=== PATIENT | male | born 1950 | race Caucasian/White ===

== ENCOUNTER 2023-10-15 11:40 | Emergency (ER) | payer MEDICARE, OTHER, SELFPAY ==
[2023-10-15 11:44] VITALS: BP 134/67
[2023-10-15 11:56] VITALS: BMI 28.3
--- NOTE | 2023-10-15 12:07 | ED.GENMED ---
History of Present Illness
General
Chief Complaint: Dizziness
Time Seen by Provider: 10/15/23 11:51
Travel History
Have you had any contact with someone who has COVID-19?: No
Do you have any symptoms of coronavirus? Fever > 100 degrees, chills, cough, shortness of breath, sore throat, loss of taste or smell, muscle aches, or headache?: No
History of Present Illness
History of Present Illness:
See MDM
Past History
Past History
ED Past Medical History: Arrthythmia (Atrial fib), CAD, CVA (Denies weakness), HTN, Hypercholesterolemia, NIDDM, Psychiatric (Anxiety) and Other (Diabetic neuropathy, Sleep apnea use Bipap, PNA, Colitis, Ulcers)
ED Past Surgical History: Cardiac (Linq recorderm Ablation), Orthopedic (Spinal surgery) and Tonsilectomy
Social History
Tobacco: Former smoker
Alcohol: Occasional
Drug: None
Personal:
Living: with family
Phy Exam
Physical Exam
Physical Exam:
See MDM
Course
Orders/Labs/Results
Orders:
Orders
10/15/23 11:41
Electrocardiogram (*1) Urgent
Reason for Study: Chest Pain
EKG- Treatment ONCE
10/15/23 12:05
CT Head W/o Iv Contrast Urgent
Comment:
Reason For Exam: Dizzy, headache
0.9% Sodium Chloride 1000 ml [Nss] 1,000 ml IV BOLUS
10/15/23 12:09
CR Chest - 2 Views Urgent
Comment:
Reason For Exam: SOB
10/15/23 12:14
Complete Blood Count/With Diff Urgent
Comprehensive Metabolic Panel Urgent
Troponin I Urgent
10/15/23 13:45
Troponin I Urgent
10/15/23 13:54
Propofol [Diprivan] 20 ml .ROUTE .STK-MED
10/15/23 14:02
EKG [Electrocardiogram (*1)] Urgent
Reason for Study: Other
Other Reason for Exam: converted
EKG- Treatment ONCE
Abnormal Lab Results
10/15/23
12:14
MPV 11.0 H fL
(7.4-10.4)
Lymphocytes % 17.8 L %
(20.5-51.1)
Glucose 129 H mg/dl
(70-99)
10/15/23 12:14
10/15/23 12:14
Vital Signs
Initial and Last Documented VS:
Initial Vital Signs
Temp Pulse Resp BP Pulse Ox
97.9 F 68 16 134/67 98
10/15/23 11:44 10/15/23 11:44 10/15/23 11:44 10/15/23 11:44 10/15/23 11:44
Last Documented Vital Signs
Temp Pulse Resp BP Pulse Ox
97.9 F 88 20 125/69 98
10/15/23 11:44 10/15/23 14:00 10/15/23 14:00 10/15/23 14:00 10/15/23 11:44
MDM/Problems Addressed
Differential Diagnosis Includes:
HPI and MDM Narrative:
73-year-old male presenting with resolving dizziness. Patient noted sudden onset of dizziness when he went down to pick his glasses up. When he stood up, the room spinning. Patient now complaining of mild shortness of breath similar to her prior
episode of pneumonia. Patient is compliant with Eliquis for A-fib. I discussed the patient is currently in A-fib. He has had ablations and cardioversion in the past. I questioned his hydration given his dry mucous membranes. Will give IV fluids
and obtain basic blood work. Patient was concerned about stroke versus heart attack. He denies chest pain. Patient has no cerebellar sign
Physical exam
General: Well appearing and non-toxic
HEENT: protecting airway. Dry mucous membranes
Neck: appears supple
CV: No evidence of cyanosis. Irregular rhythm, regular rate
Resp: No accessory muscle use. Lungs clear
Abd: Non-distended
Extremities: No deformities
Neuro: alert. Normal finger-nose
Psych: Normal affect
Skin: Intact
Problems Addressed including Acute and Chronic Conditions affecting care:
1. A-fib
Acuity: Chronic
Prognosis: stable
Details: Currently rate controlled.
2. Dizziness
Acuity: acute
Prognosis: stable
Details: Likely in setting of A-fib versus dehydration. Given his blood thinner, will obtain CT head
3. Shortness of breath
Acuity: acute
Prognosis: stable
Details: Likely in the setting of A-fib. Will obtain chest x-ray
Updates
CT negative for acute pathology. Chest x-ray clear. On reevaluation after IV fluids, patient in normal sinus rhythm and feels better.
Differential Diagnosis (but not limited to): TIA, vertigo, pneumonia, A-fib
Testing considered: CT angio head and neck
Drug therapy (if applicable): OTC meds, please see d/c instruction regarding Rx drugs
Amount and/or Complexity of Data Reviewed
Clinical info obtained from: Patient
External data reviewed: N/A
Labs I independently reviewed (but not limited to): Troponin normal
Radiology: The CT scan was personally and independently reviewed. In addition, official CT report reviewed.
X-ray independently reviewed: Chest x-ray clear
Pulse Ox: not hypoxic
EKG independently reviewed: A flutter, normal axis, no STEMI
Vat Washer: N/A
Critical Care: N/A
Risk of Complication:
Social Determinants of health: Good social support
Discussed with other providers: N/A
Escalation of Care includes Admit/Obs: After being observed in the Emergency Department, pt stable for discharge.
Occasional wrong word or 'sound a like' substitutions may have occurred due to the inherent limitations of voice recognition software. Read the chart carefully and recognize, using context, where substitutions have occurred.
*Critical Care Note
Total Time (30-74mins, 75-104mins- exclusive of procedures): Not Applicable
ED Attending Note
-
Portions of this chart may have been created with voice recognition software.� Occasional wrong word or��sound alike� substitutions may have occurred due to the inherent limitations of voice recognition software.
Discharge Plan
Departure
Patient Disposition: Home (Routine Discharge)
Date of Disposition: 10/15/23
Time of Disposition: 14:46
Patient with high blood pressure during this ER visit?: No
Discharge Problem:
Paroxysmal atrial fibrillation
Instructions: Atrial Fibrillation (DC)
Prescriptions:
No Action
losartan 50 MG tablet
50 mg PO DAILY
rosuvastatin 20 MG tablet
20 mg PO DAILY
duloxetine 60 MG capsule,delayed release(DR/EC)
60 mg PO DAILY
fenofibrate 54 MG tablet
54 mg PO DAILY
omega 8-enu-gek-fish oil [Fish Oil] 1,000 MG capsule
3,000 mg PO DAILY
Insulin Pump [Patient's Own Insulin Pump:] 1 UNITS Pump.Resvr
0 units SC
Patient Comments:
08/23/19: patient uses humalog insulin. does not know his basal rate. counts carbs for bolus'.
diltiazem HCl 180 MG capsule,extended release 24hr
360 mg PO DAILY Qty: 60 11RF
Rx Instructions:
Take Cardizem CD 360 mg (two 180 mg tablets) once a day
Eliquis 5 MG tablet
5 mg PO BID Qty: 0 0RF
Rx Instructions:
Please resume tonight, 06/25 at usual time
azithromycin 250 mg Tablet
250 mg PO DAILY
ketorolac 0.4 % Drops
1 drp OPHTHALMIC (EYE) QID
Rx Instructions:
L eye
moxifloxacin 0.5 % Drops
1 drp OPHTHALMIC (EYE) TID
Rx Instructions:
L eye
prednisolone acetate 1 % Drops,Suspension
1 drp OPHTHALMIC (EYE) QID
Rx Instructions:
L eye
prednisolone acetate 1 % Drops,Suspension
2 drp OPHTHALMIC (EYE) BID
Rx Instructions:
R eye
cefdinir 300 mg capsule
300 mg PO BID 7 Days Qty: 14 0RF
Referrals:
Buddy Novak DO [Family Provider] -
Activity Restrictions/Additional Instructions:
Please return for any worsening symptoms.
You may return at any time if you have further concerns.
Please follow up with your doctor at the first available appointment, preferably this week.
Thank you for choosing [facility].
Interventions
Interventions:
*Risk Screen - Suicide Last Done: 10/15/23 11:56
*General Assessment Last Done: 10/15/23 11:44
*Neglect/Abuse Screening Last Done: 10/15/23 11:56
ED- Fall Risk Assessment Last Done: 10/15/23 11:56
*ED COVID-19 Vaccine History Last Done: 10/15/23 11:44
ED- Neurological Assessment Last Done: 10/15/23 11:56
ED- Cardiac Assessment Last Done: 10/15/23 11:56
ED Swallowing Screen Last Done: 10/15/23 11:56
[2023-10-15] MEDS: NSS 1000 IV (12:15)
[2023-10-15 12:37] LABS: % Basophils 0.4 % (0-2); % Eosinophils 1.2 % (0-6); % Immature Granulocytes 0.4 % (0-0.5); % Lymphocytes 17.8 % (20.5-51.1); % Monocytes 6.3 % (1.7-9.3); % Neutrophils 73.9 % (42.2-75.2); Absolute Eosinophils 0.1 10^3/uL (0-0.7); Absolute Lymphocytes 1.3 10^3/uL (1.2-3.4); Absolute Monocytes 0.5 10^3/uL (0.1-0.6); Absolute Neutrophils 5.4 10^3/uL (1.4-6.5); Hematocrit 44.1 % (39.0-52.0); Hemoglobin 15.7 g/dL (13.0-18.0); Mean Corp Hgb Conc. 35.6 g/dL (33.0-37.0); Mean Corpuscular Hgb 30.6 pg (27.0-31.0); Nucleated Red Blood Cells % 0 % (-); Platelet Count 259 10^3/uL (130-400); Red Blood Cell Count 5.13 10^6/uL (4.70-6.10); Red Cell Dist. Width 12.3 % (11.5-14.5); White Blood Cell Count 7.3 10^3/uL (4.8-10.8)
[2023-10-15 12:49] LABS: ALT (SGPT) 30 U/L (0-50); AST (SGOT) 43 U/L (17-59); Albumin 4.7 g/dl (3.5-5.0); Alkaline Phosphatase 123 U/L (38-126); Blood Urea Nitrogen 17 mg/dl (9-20); Calcium 9.7 mg/dl (8.4-10.2); Carbon Dioxide 27 mmol/L (22-30); Chloride 104 mmol/L (98-107); Estimated Creatinine Clearance 57 ml/min; Glucose 129 mg/dl (70-99); Potassium 4.4 mmol/L (3.5-5.1); Sodium 138 mmol/L (135-145); Total Bilirubin 0.7 mg/dl (0.2-1.3); Total Protein 7.4 g/dl (6.3-8.2); eGFR 58.73
[2023-10-15 13:00] LABS: Troponin I 0.021 ng/ml
[2023-10-15 13:03] VITALS: BP 132/75
[2023-10-15 14:00] VITALS: BP 125/69
[2023-10-15 15:00] VITALS: BP 136/73
== END 2023-10-15 15:14 | disposition home or self-care (01) ==
LOC: EMR 11:40
PROVIDERS: EMERGENCY PHYSICIAN Student in an Organized Health Care Education/Training Program; FAMILY PHYSICIAN Family Medicine
DX: I48.0 Paroxysmal atrial fibrillation (principal); R42 Dizziness and giddiness; R06.02 Shortness of breath; I25.10 Atherosclerotic heart disease of native coronary artery without angina pectoris; I10 Essential (primary) hypertension; E78.00 Pure hypercholesterolemia, unspecified; E11.40 Type 2 diabetes mellitus with diabetic neuropathy, unspecified; F41.9 Anxiety disorder, unspecified; G47.30 Sleep apnea, unspecified; K52.9 Noninfective gastroenteritis and colitis, unspecified; Z79.01 Long term (current) use of anticoagulants; Z87.01 Personal history of pneumonia (recurrent); Z86.73 Personal history of transient ischemic attack (TIA), and cerebral infarction without residual deficits; Z87.891 Personal history of nicotine dependence; Z88.1 Allergy status to other antibiotic agents
CPT/HCPCS: 99285; 96360; 70450; 71046; 80053; 84484; 85025; 93005

== ENCOUNTER 2024-10-23 17:42 | Emergency (ER) | payer MEDICARE, OTHER, SELFPAY ==
[2024-10-23 17:48] VITALS: BP 159/73
[2024-10-23 18:01] LABS: Glucose - Point of Care 518 mg/dl (70-99)
[2024-10-23 18:07] LABS: % Basophils 0.3 % (0-2); % Eosinophils 0.2 % (0-6); % Immature Granulocytes 0.3 % (0-0.5); % Monocytes 5.4 % (1.7-9.3); % Neutrophils 80.8 % (42.2-75.2); Absolute Lymphocytes 1.1 10^3/uL (1.2-3.4); Absolute Monocytes 0.5 10^3/uL (0.1-0.6); Hematocrit 39.5 % (39.0-52.0); Hemoglobin 14.1 g/dL (13.0-18.0); Mean Corp Hgb Conc. 35.7 g/dL (33.0-37.0); Mean Corpuscular Hgb 30.7 pg (27.0-31.0); Mean Corpuscular Volume 85.9 fL (80.0-94.0); Mean Platelet Volume 10.9 fL (7.4-10.4); Nucleated Red Blood Cells % 0 % (-); Platelet Count 224 10^3/uL (130-400); Red Cell Dist. Width 12.3 % (11.5-14.5); Venous Blood Gas B.E. -2.2 mmol/L (-4 to +4); Venous Blood Gas HCO3 23.2 mmol/L (22-27); Venous Blood Gas O2 Sat % 84.8 %; Venous Blood Gas pCO2 41 mmHg (35-48); Venous Blood Gas pH 7.36 (7.32-7.43); Venous Blood Gas pO2 49 mmHg (30-50); White Blood Cell Count 8.7 10^3/uL (4.8-10.8)
[2024-10-23 18:30] LABS: ALT (SGPT) 31 U/L (0-50); AST (SGOT) 35 U/L (17-59); Albumin 4.3 g/dl (3.5-5.0); Alkaline Phosphatase 117 U/L (38-126); Blood Urea Nitrogen 38 mg/dl (9-20); Calcium 9.3 mg/dl (8.4-10.2); Carbon Dioxide 24 mmol/L (22-30); Chloride 95 mmol/L (98-107); Glucose 530 mg/dl (70-99); Potassium 4.6 mmol/L (3.5-5.1); Sodium 129 mmol/L (135-145); Total Bilirubin 1.5 mg/dl (0.2-1.3); Total Protein 6.6 g/dl (6.3-8.2); eGFR > 60.00
[2024-10-23 18:32] LABS: B-Hydroxybutyrate 1.52 mmol/L (0.02-0.27)
[2024-10-23 18:35] VITALS: BP 137/58
[2024-10-23 18:36] VITALS: BMI 29.6
[2024-10-23] MEDS: NSS 1000 IV (18:50)
[2024-10-23 19:00] VITALS: BP 143/65
[2024-10-23 19:02] LABS: Glucose - Point of Care 462 mg/dl (70-99)
[2024-10-23] MEDS: NOVOLOG vial 10 UNITS SC (19:10)
--- NOTE | 2024-10-23 19:19 | ED.GENMED ---
History of Present Illness
General
Chief Complaint: Blood Sugar Problem
Source: patient
Exam Limitations: none
Time Seen by Provider: 10/23/24 18:38
Nursing documentation reviewed up to this point in time: agreed with
History of Present Illness
History of Present Illness:
74-year-old male with a past medical history of hypertension, hyperlipidemia, CAD, atrial fibrillation, DARRELL, insulin-dependent diabetes who presents to the emergency department for evaluation of hyperglycemia. Patient reports that he recently got a
new insulin pump about a week ago due to malfunction with his old pump. He says that despite no change in his normal insulin dosing (2.9 units/h according to the pump) he noted severe hyperglycemia today with a blood glucose of over 500. He says
he has felt weak and tired but denies any other specific complaints including vomiting, abdominal pain, headache, chest pain. He does note that he is just getting over a minor cold but otherwise feeling well the past few days. He does note that
prior to come to the hospital today he gave himself a total of 22 units of subcutaneous insulin manually due to his high sugars�10 units early afternoon and then 12 more units at around 5 PM.
Past History
Past History
ED Past Medical History: Arrthythmia (Atrial fib), CAD, CVA (Denies weakness), HTN, Hypercholesterolemia, NIDDM, Psychiatric (Anxiety) and Other (Diabetic neuropathy, Sleep apnea use Bipap, PNA, Colitis, Ulcers)
ED Past Surgical History: Cardiac (Linq recorderm Ablation), Orthopedic (Spinal surgery) and Tonsilectomy
Social History
Tobacco: Former smoker
Alcohol: Occasional
Drug: None
Personal:
Living: with family
Review of Systems
Review of Systems
All Other Systems: ROS reviewed and negative except as documented in HPI and ROS
Constitutional: Reports fatigue; Denies fever
Respiratory: Denies cough or trouble breathing
Cardiac: Denies chest pain
ABD/GI: Denies abdominal pain, nausea or vomiting
: Denies flank pain
Musculoskeletal: Denies neck pain or back pain
Neurological: Denies dizzy or headache
Phy Exam
Physical Exam
Physical Exam:
General: Awake, alert, oriented x3; no acute distress
Head: Normocephalic, atraumatic
Eyes: Conjunctiva normal
Throat: Airway intact, somewhat dry mucous membranes
Neck: Trachea midline, supple without meningismus
Lungs: Clear to auscultation bilaterally, no wheezing, rales, rhonchi
Heart: Regular rate and rhythm, no murmurs, gallops, or rubs
Abd: Soft, non distended, nontender
Neuro: No gross deficits
Skin: no rash
Extremities: No edema in extremities, equal pulses in all extremities
Scores
Heart Failure Risk
Heart Failure Risk Score: Not Applicable
Heart Score for Chest Pain Patients
STEMI patient?: Not applicable
Withdrawal Assessment of Alcohol
Withdrawal Assessment Completed?: Not applicable
Course
Orders/Labs/Results
Orders:
Orders
10/23/24 17:54
B-Hydroxybutyrate Urgent
Complete Blood Count/With Diff Urgent
Comprehensive Metabolic Panel Urgent
Venous Blood Gas Urgent
%Oxygen/Room Air: room air
10/23/24 18:39
0.9% Sodium Chloride 1000 ml [Nss] 1,000 ml IV BOLUS
10/23/24 19:00
Bedside Glucose- Treatment Q30M
10/23/24 19:02
Insulin Aspart [NOVOLOG vial] 10 units SC NOW STA
10/23/24 19:05
Glucose Urgent
10/23/24 19:39
Urinalysis Reflex To Culture Urgent
Date Specimen was Collected: 10/23/24
Time Specimen was Collected: 19:34
Urine Microscopic Reflex Cult Urgent
10/23/24 22:07
Insulin Glargine Lantus [Lantus] 50 units Subcutaneous Insulin Syringe [Syringe-Insulin] 0 unit SC ONCE
Abnormal Lab Results
10/23/24 10/23/24 10/23/24
17:54 18:00 19:00
RBC 4.60 L 10^6/uL
(4.70-6.10)
MPV 10.9 H fL
(7.4-10.4)
Absolute Neuts (auto) 7.0 H 10^3/uL
(1.4-6.5)
Absolute Lymphs (auto) 1.1 L 10^3/uL
(1.2-3.4)
Neutrophils % 80.8 H %
(42.2-75.2)
Lymphocytes % 13.0 L %
(20.5-51.1)
Sodium 129 L mmol/L
(135-145)
Chloride 95 L mmol/L
(98-107)
BUN 38 H mg/dl
(9-20)
Glucose 530 H* mg/dl
(70-99)
Total Bilirubin 1.5 H mg/dl
(0.2-1.3)
Urine Ketones
Urine Glucose
Urine Albumin (Reflex)
B-Hydroxybutyrate 1.52 H mmol/L
(0.02-0.27)
POC Glucose 518 H* mg/dl 462 H* mg/dl
(70-99) (70-99)
10/23/24 10/23/24 10/23/24
19:05 19:39 20:21
RBC
MPV
Absolute Neuts (auto)
Absolute Lymphs (auto)
Neutrophils %
Lymphocytes %
Sodium
Chloride
BUN
Glucose 456 H* mg/dl
(70-99)
Total Bilirubin
Urine Ketones 1+ A
(Negative)
Urine Glucose 4+ A
(Negative)
Urine Albumin (Reflex) 2+ A
(Neg - Trace)
B-Hydroxybutyrate
POC Glucose 344 H mg/dl
(70-99)
10/23/24
21:39
RBC
MPV
Absolute Neuts (auto)
Absolute Lymphs (auto)
Neutrophils %
Lymphocytes %
Sodium
Chloride
BUN
Glucose
Total Bilirubin
Urine Ketones
Urine Glucose
Urine Albumin (Reflex)
B-Hydroxybutyrate
POC Glucose 279 H mg/dl
(70-99)
10/23/24 17:54
10/23/24 19:05
Vital Signs
Initial and Last Documented VS:
Initial Vital Signs
Temp Pulse Resp BP Pulse Ox
36.9 C 76 18 159/73 96
10/23/24 17:48 10/23/24 17:48 10/23/24 17:48 10/23/24 17:48 10/23/24 17:48
Last Documented Vital Signs
Temp Pulse Resp BP Pulse Ox
36.9 C 66 20 143/65 95
10/23/24 17:48 10/23/24 19:15 10/23/24 19:15 10/23/24 19:00 10/23/24 19:15
MDM/Problems Addressed
Differential Diagnosis Includes:
Hyperglycemia, DKA
MDM/Problems Addressed:
74-year-old male presents for evaluation of hyperglycemia despite use of his insulin pump�he unfortunately had to switch pumps recently and thinks it may be malfunctioning. Sugars over 500 today. He is fatigued but no other significant symptoms.
Hypertensive otherwise normal vitals. Physical exam as above. Attempted to troubleshoot insulin pump but appears to be working, program to give 2.9 units/h however given his continued high sugars advised to stop insulin pump and will proceed with
treatment with subcutaneous insulin. His triage labs were sent off his CBC was unremarkable, CMP showed glucose of over 500 with pseudohyponatremia but no metabolic acidosis, normal pH�patient does not appear to be in DKA. Will provide IV fluids
and start with 10 additional units of subcutaneous insulin, frequent Accu-Cheks. Reassess. Suspect this is more of a pump malfunction rather than some secondary issue causing refractory hypoglycemia.
After fluids and 10 additional units of subcutaneous insulin his sugar continues to trend downward. Continue to monitor. Now in the 300s.
Sugar continues to be downtrending he is now 279 on his most recent check. He feels well vitals have been stable. He has a good monitor at home I think he is in a reasonable range to discharge�will start on subcu insulin for now and have him see
his endocrine this week to troubleshoot his insulin pump. Discussed with endocrinology regarding reasonable subcutaneous insulin regimen to start for the time being�will give him Lantus prior to discharge and start on Lantus 50 units nightly and
Humalog per normal bolus ratios with meals. Patient is very comfortable with this. All questions answered.
Chronic conditions affecting care:
Insulin-dependent diabetes
*Pulse Oximetry
Patient hypoxic: no
*Critical Care Note
Total Time (30-74mins, 75-104mins- exclusive of procedures): Not Applicable
Data Reviewed
Source: patient and spouse
ED Attending Note
-
Portions of this chart may have been created with voice recognition software.� Occasional wrong word or��sound alike� substitutions may have occurred due to the inherent limitations of voice recognition software.
Discharge Plan
Departure
Patient Disposition: Home (Routine Discharge)
Date of Disposition: 10/23/24
Time of Disposition: 22:12
Patient with high blood pressure during this ER visit?: Yes
Discharge Problem:
Hyperglycemia
Instructions: High blood sugar in adults - ED discharge instructions
Prescriptions:
New
insulin glargine [Lantus U-100 Insulin] 100 unit/mL solution
50 unit SC QPM 30 Days Qty: 15 0RF
insulin lispro [Humalog U-100 Insulin] 100 unit/mL solution
1 sliding scale dose SC DIRECTED Qty: 10 0RF
No Action
losartan 50 MG tablet
50 mg PO DAILY
rosuvastatin 20 MG tablet
20 mg PO DAILY
duloxetine 60 MG capsule,delayed release(DR/EC)
60 mg PO DAILY
fenofibrate 54 MG tablet
54 mg PO DAILY
omega 1-jtk-pad-fish oil [Fish Oil] 1,000 MG capsule
3,000 mg PO DAILY
Insulin Pump [Patient's Own Insulin Pump:] 1 UNITS Pump.Resvr
0 units SC
Patient Comments:
08/23/19: patient uses humalog insulin. does not know his basal rate. counts carbs for bolus'.
diltiazem HCl 180 MG capsule,extended release 24hr
360 mg PO DAILY Qty: 60 11RF
Rx Instructions:
Take Cardizem CD 360 mg (two 180 mg tablets) once a day
Eliquis 5 MG tablet
5 mg PO BID Qty: 0 0RF
Rx Instructions:
Please resume tonight, 06/25 at usual time
azithromycin 250 mg Tablet
250 mg PO DAILY
ketorolac 0.4 % Drops
1 drp OPHTHALMIC (EYE) QID
Rx Instructions:
L eye
moxifloxacin 0.5 % Drops
1 drp OPHTHALMIC (EYE) TID
Rx Instructions:
L eye
prednisolone acetate 1 % Drops,Suspension
1 drp OPHTHALMIC (EYE) QID
Rx Instructions:
L eye
prednisolone acetate 1 % Drops,Suspension
2 drp OPHTHALMIC (EYE) BID
Rx Instructions:
R eye
cefdinir 300 mg capsule
300 mg PO BID 7 Days Qty: 14 0RF
Referrals:
Buddy Novak DO [Family Provider] -
Piyush Edmond MD [Non-Admitting Privileges] - Call in 1-3 days for appt (Follow up with week with your metallurgical analyst as we discussed)
Activity Restrictions/Additional Instructions:
You should stop using your insulin pump for the time being until you can see your metallurgical analyst and troubleshoot the pump. You should call first thing tomorrow to see your metallurgical analyst as soon as possible. In the meantime you should watch
your sugars very closely with regular Accu-Cheks; we started you on subcutaneous insulin and you should continue this regimen until you see your metallurgical analyst. You should start using Lantus 50 units at nighttime and you should take your mealtime
insulin (Humalog) according to your typical insulin bolus ratios as we discussed.
Thank you for visiting the Emergency Department at [facility].
1. Please schedule a follow up appointment as directed. Call first thing tomorrow morning to make an appointment.
2. If indicated, please take your medications as instructed and indicated on discharge paperwork.
3. If any of your symptoms do not improve, or persist, or become more severe within 6-12 hours, please return to the emergency department for further care.
4. Please return to the emergency department if you develop a headache, neck pain/stiffness, fever greater than 100.4F, chest pain, shortness of breath, persistent nausea, vomiting, slurred speech, difficulty walking, numbness/tingling, weakness,
signs of infection or any other symptoms that are worrisome to you.
Please call [phone] if you have any questions.
Interventions
Interventions:
*Risk Screen - Suicide Last Done: 10/23/24 17:49
*General Assessment Last Done: 10/23/24 17:49
*Neglect/Abuse Screening Last Done: 10/23/24 17:49
*ED COVID-19 Vaccine History Last Done: 10/23/24 17:49
ED- Neurological Assessment Last Done: 10/23/24 18:36
Discharge Date and Time
Print Language: KISWAHILI
[2024-10-23 19:38] LABS: Glucose 456 mg/dl (70-99)
[2024-10-23 20:00] VITALS: BP 138/69
[2024-10-23 20:00] LABS: Urine Albumin 2+ (Neg - Trace); Urine Bilirubin Negative (Negative); Urine Character Clear (Clear); Urine Color Yellow; Urine Glucose 4+ (Negative); Urine Ketone 1+ (Negative); Urine Leukocyte Negative (Negative); Urine Nitrite Negative (Negative); Urine Occult Blood Negative (Negative); Urine Specific Gravity 1.015 (<1.030); Urine Urobilinogen Negative (Neg - 1+)
[2024-10-23 20:22] LABS: Urine Squamous Cell 0-2 /LPF (Few)
[2024-10-23 20:23] LABS: Urine Red Blood Cell 0-2 /HPF (0-2)
[2024-10-23 20:23] LABS: Glucose - Point of Care 344 mg/dl (70-99)
[2024-10-23 21:00] VITALS: BP 122/107
[2024-10-23 21:34] VITALS: BP 147/68
[2024-10-23 21:40] LABS: Glucose - Point of Care 279 mg/dl (70-99)
[2024-10-23] MEDS: LANTUS 0.5 UNITS SC (22:45)
== END 2024-10-23 22:50 | disposition home or self-care (01) ==
LOC: EMR 17:42
PROVIDERS: Emergency Medicine; EMERGENCY PHYSICIAN Emergency Medicine; FAMILY PHYSICIAN Family Medicine
DX: E11.65 Type 2 diabetes mellitus with hyperglycemia (principal); E78.00 Pure hypercholesterolemia, unspecified; I25.10 Atherosclerotic heart disease of native coronary artery without angina pectoris; I48.91 Unspecified atrial fibrillation; I10 Essential (primary) hypertension; G47.33 Obstructive sleep apnea (adult) (pediatric); E11.40 Type 2 diabetes mellitus with diabetic neuropathy, unspecified; Z96.41 Presence of insulin pump (external) (internal); Z79.4 Long term (current) use of insulin; Z86.73 Personal history of transient ischemic attack (TIA), and cerebral infarction without residual deficits; Z87.891 Personal history of nicotine dependence
CPT/HCPCS: 99283; 96360; 96372; 80053; 81003; 81015; 82010; 82805; 82947; 82962; 85025

== ENCOUNTER 2024-11-15 06:03 | Inpatient (IN) | payer MEDICARE, OTHER, SELFPAY ==
[2024-11-04 09:55] VITALS: BMI 29.6
[2024-11-04 10:33] LABS: PT 13.5 Sec (11.4-14.6)
[2024-11-04 10:39] LABS: % Basophils 0.3 % (0-2); % Eosinophils 1.9 % (0-6); % Immature Granulocytes 0.5 % (0-0.5); % Lymphocytes 17.4 % (20.5-51.1); % Monocytes 6.8 % (1.7-9.3); % Neutrophils 73.1 % (42.2-75.2); Absolute Eosinophils 0.1 10^3/uL (0-0.7); Absolute Lymphocytes 1.1 10^3/uL (1.2-3.4); Absolute Monocytes 0.4 10^3/uL (0.1-0.6); Absolute Neutrophils 4.7 10^3/uL (1.4-6.5); Hematocrit 40.7 % (39.0-52.0); Hemoglobin 13.9 g/dL (13.0-18.0); Mean Corp Hgb Conc. 34.2 g/dL (33.0-37.0); Mean Corpuscular Hgb 30.3 pg (27.0-31.0); Mean Corpuscular Volume 88.9 fL (80.0-94.0); Mean Platelet Volume 11.2 fL (7.4-10.4); Nucleated Red Blood Cells % 0 % (-); Platelet Count 209 10^3/uL (130-400); Red Blood Cell Count 4.58 10^6/uL (4.70-6.10); Red Cell Dist. Width 12.6 % (11.5-14.5); White Blood Cell Count 6.4 10^3/uL (4.8-10.8)
[2024-11-04 10:48] LABS: ALT (SGPT) 34 U/L (0-50); AST (SGOT) 38 U/L (17-59); Albumin 4.2 g/dl (3.5-5.0); Alkaline Phosphatase 93 U/L (38-126); Blood Urea Nitrogen 23 mg/dl (9-20); Calcium 9.3 mg/dl (8.4-10.2); Carbon Dioxide 27 mmol/L (22-30); Chloride 105 mmol/L (98-107); Estimated Creatinine Clearance 79 ml/min; Glucose 165 mg/dl (70-99); Potassium 4.2 mmol/L (3.5-5.1); Sodium 140 mmol/L (135-145); Total Bilirubin 0.6 mg/dl (0.2-1.3); Total Protein 6.5 g/dl (6.3-8.2); eGFR > 60.00
[2024-11-15] VITALS (11 sets, daily range): BP systolic 110–153; BP diastolic 53–70; BMI 29.5
--- NOTE | 2024-11-15 07:08 | PTCARENOTE ---
Per Dr Lott pt placed insulin pump on basal rate mode only at this time
--- NOTE | 2024-11-15 07:15 | W.PN.UPDATE ---
Update Note
Progress Note Update
Reviewed patient with the heart in the SDM meeting and discussed a 27mm Device, will confirm with intraop imaging. He will continue Eliquis 5mg BID x 3 months until f/u AIDA.
[2024-11-15 08:50] LABS: Glucose - Point of Care 71 mg/dl (70-99)
--- NOTE | 2024-11-15 08:51 | ITS.CL.PN ---
It Infrastructure Specialist - Procedure Note
Procedure
Procedure Note:
WATCHMAN LEFT ATRIAL APPENDAGE OCCLUSION REPORT
Date of Procedure: 11/15/2024
Referring: Dr. Phu Peña MD
Indication: atrial fibrillation with high stroke risk and inability to afford NOAC
Operators: Chi Park MD, PhD (interventional cardiology); Dr. Brett Anthony MD (electrophysiology); Dr. Dylan Bartholomew MD (cardiac imaging)
Anesthesia: general anesthesia provided by the anesthesia staff
PROCEDURE: left atrial appendage occlusion with a 27 mm Watchman FLX
ACCESS: 14F right common femoral vein (closure: figure of eight stitch)
ULTRASOUND GUIDED VASCULAR ACCESS (right femoral vein): Ultrasound was utilized for vascular access. The vessel was visualized under ultrasound and noted to be patent. An image of the vessel was stored permanently in the patient's medical record.
Under direct ultrasound guidance, vascular access was obtained using a modified Seldinger technique and a 8 Salvadorean sheath was placed.
HEMODYNAMIC DATA
LA 14 mmHg
PROCEDURE NARRATIVE:
The patient was intubated and sedated by anesthesiology and then prepped and draped in standard sterile fashion. A AIDA probe was placed by cardiology and imaging performed demonstrating no left atrial appendage thrombus and no pericardial effusion.
Under ultrasound guidance, the right femoral vein was accessed with 8F and 9F sheaths placed. Heparin was administered to achieve ACT>300.
An ICE catheter was placed via the 9F sheath and advanced to the right atrium. The 8F sheath was exchanged over a travelmob RF wire for the Watchman double curve sheath which was advanced to the SVC. The Watchman sheath was then pulled back under
fluoroscopic and echo guidance until an appropriate inferior and posterior position on the septum was achieved. During brief RF application, the wire was advanced through the interatrial septum into the left atrium. The wire was placed in the left
upper pulmonary vein as confirmed by fluoroscopy and AIDA. The dilator and sheath easily tracked across the septum allowing placement of the sheath in the left atrium. Left atrial pressure was measured at 14 mmHg.
A 5F pigtail catheter was advanced through the sheath and placed in the left atrial appendage, and an appendage gram was performed demonstrating anatomy suitable for a 27 mm Watchman FLX device. The device was prepped on the back table, the pigtail
catheter removed, and the device delivered via the sheath to the left atrial appendage. The device was deployed slowly under continuous fluoroscopic and AIDA visualization. After deployment, AIDA imaging was performed to assess PASS criteria. The
device demonstrated excellent positioning, anchor stability on tug test, appropriate sizing with 20-25% compression, and appropriate seal with no leak at 0, 45, 90, or 135 degrees. Given PASS criteria were met, the device was then released.
The delivery system retracted back into the sheath and removed from the body. The sheath was retracted into the right atrium with AIDA demonstrating no significant R-L shunt or pericardial effusion. The ICE catheter was removed from the body. The
sheaths were removed and the venotomy closed with [id number] knot. Protamine 4500 units was given. The patient was extubated and tolerated the procedure well.
RADIATION: dose 279.7 mGy; DAP 30.1 Gy*cm2; fluoroscopy time 7.5 min
CONCLUSIONS
1. transseptal puncture with AIDA guidance
2. successful deployment of a 27 mm Watchman FLX device under fluoroscopic and AIDA guidance
RECOMMENDATIONS:
1. anticoagulation with Eliquis 5 mg BID
2. repeat AIDA in 3 months
Copy to: Dr. Phu Peña MD (switch operators supervisor); Dr. Buddy Novak MD (PCP)
Signed: Chi Park MD, PhD
--- NOTE | 2024-11-15 09:07 | ITS.CL.PN ---
Undercar Specialist - Procedure Note
Procedure
Procedure Note:
Watchman implantation report
Date: November 15, 2024
Referring: Dr. Lior Peña
History: 74-year-old male with history of prior TIAs status post pulmonary vein isolation. He has an ILR implant which has not revealed any atrial fibrillation. He cannot be compliant with long-term oral anticoagulation.
Watchman implant: Anthony
Femoral venous access and transseptal scrap drop operator: Kev
Procedure report:
After informed consent and patient safety timeout the patient was sedated by the anesthesiology service. After general anesthesia Dr. Bartholomew performed AIDA which demonstrated a clear left atrial appendage with a trace pericardial effusion which was
stable postoperatively. 21 to 22 mm ostium with left atrial pressure of 14 and under direct ultrasound guidance Dr Park performed direct right femoral venous access with an 8 [place] short sheath which was upgraded to the watchman sheath. Over
pigtail wire this was brought to the right atrium and under AIDA guidance a mid mid stick with the [place] wire and watchman sheath was performed accessing the left atrium and the pigtail catheter was brought into the left supra pulmonary vein. The
sheath was brought to the left atrial appendage with heparin given to greater than 350 seconds. Over the pigtail a dye injection demonstrated a cauliflower appendage with a 22 mm ostium. As such we brought a 27 mm Watchman device to the table.
With wet to wet exchange the Watchman device was brought through the sheath to the left atrial appendage in place intractable fashion. Utilizing the mid distal appendage as a target the 27 device was deployed with 10 seconds of forward pressure.
Aggressive tug testing did not change the position of the device. Device position was ostial. 11 to 19% compression. The device met Pass criteria and all team members agreed for device appointment which was deployed and sheath and catheters
removed to the right atrium. 45 mg protamine was given to reverse the ACT which was greater than 400 seconds. No change in pericardial effusion and a [id number] suture to the right femoral venous access site.
Recommendations:
27 mm device appointment
3 months of oral anticoagulation until 3-month AIDA
[2024-11-15 09:28] LABS: Glucose - Point of Care 90 mg/dl (70-99)
[2024-11-15] MEDS: ANESTHETIC LOZENGE 1 LOZENGE PO (10:31)
--- NOTE | 2024-11-15 11:00 | PTCARENOTE ---
Pt turned insulin pump back on due to his blood sugar registering 145
[2024-11-15 11:30] LABS: Glucose - Point of Care 167 mg/dl (70-99)
[2024-11-15 12:43] LABS: ACT-LR - POC > 397 Seconds (116-155)
--- NOTE | 2024-11-15 13:52 | W.PN.UPDATE ---
Update Note
Progress Note Update
Pt seen post Watchman device implant. Right groin site without ht/bleeding, oob ambulating, urinating without difficulty. Post EKG NSR 60s, no acute changes. Resume eliquis tonight at usual time, continue other meds as before. Post watchman AIDA
scheduled for 02/16 [address] Follow[address] with Dr. Peña as scheduled. Home today if groin site/tele remain stable.
--- NOTE | 2024-11-15 14:37 | W.DS.TRANS ---
DC Summary - Architectural Designer
-
Discharge Instructions:
Discharge Diagnosis/Procedures AFib, s/p watchman device implant
Diet Low Cholesterol,Diabetic, Carb Controlled
Driving Restrictions No driving for 24 hours
Others Tests Follow up AIDA has been scheduled for you at
[facility] on 02/16/[address] Alvarez
. Pre-admission testing is scheduled for
2024 at 11:20am, Ground Floor [facility].
Instructions: Carb counting for adults with diabetes
Left Atrial Appendage Closure (DC)
Atrial fibrillation - Discharge instructions
Heart-healthy diet
Stand-Alone Forms: DC Instructions- Cath/EP Lab
Changes to Home Medications: No
Discharge Medications:
DC Medications w/original date entered in [facility]
losartan 50 mg tablet 50 mg PO DAILY Blood Pressure 02/17/18
rosuvastatin 20 mg tablet 20 mg PO DAILY High Cholesterol 02/17/18
Insulin Pump [Patient's Own Insulin Pump:] 0 units SC DAILY Diabetes 08/23/19
duloxetine 60 mg capsule,delayed release 60 mg PO DAILY Mental Health/Anxiety 08/23/19
fenofibrate 54 mg tablet 54 mg PO DAILY High Cholesterol 08/23/19
omega 2-rbi-nsu-fish oil 1,000 mg (120 mg-180 mg) capsule (Fish Oil) 3,000 mg PO DAILY Supplement 08/23/19
diltiazem HCl 180 mg capsule,extended release 24 hr 360 mg (2 x 180 mg) PO DAILY #60 caps 08/24/19
apixaban 5 mg tablet (Eliquis) 5 mg PO BID #0 tabs 06/25/22
insulin lispro 100 unit/mL subcutaneous solution (Humalog U-100 Insulin) 1 sliding scale dose SC DIRECTED #10 mL 10/23/24
Vitamin C 1 cap PO DAILY 10/28/24
Vitamin D3 1 cap PO DAILY 10/28/24
zinc 1 cap PO DAILY 10/28/24
amlodipine 5 mg tablet 5 mg PO HS 11/15/24
losartan 50 mg tablet 25 mg PO QPM 11/15/24
Home Medication Changes
Pending Results: No
== END 2024-11-15 13:50 | disposition home or self-care (01) | DRG 274 ==
LOC: CATH-IN 06:03
PROVIDERS: Internal Medicine Cardiovascular Disease; ADMITTING PHYSICIAN Internal Medicine Cardiovascular Disease; FAMILY PHYSICIAN Family Medicine
PROC: B24BZZ4 Ultrasonography of Heart with Aorta, Transesophageal (ICD-10-PCS; 2024-11-15)
PROC: 02L73DK Occlusion of Left Atrial Appendage with Intraluminal Device, Percutaneous Approach (ICD-10-PCS; 2024-11-15)
DX: I48.0 Paroxysmal atrial fibrillation (principal); Z00.6 Encounter for examination for normal comparison and control in clinical research program; I31.39 Other pericardial effusion (noninflammatory); I48.92 Unspecified atrial flutter; I10 Essential (primary) hypertension; E78.5 Hyperlipidemia, unspecified; I25.10 Atherosclerotic heart disease of native coronary artery without angina pectoris; G47.33 Obstructive sleep apnea (adult) (pediatric); E11.36 Type 2 diabetes mellitus with diabetic cataract; E11.40 Type 2 diabetes mellitus with diabetic neuropathy, unspecified; E66.9 Obesity, unspecified; Z68.29 Body mass index [BMI] 29.0-29.9, adult; Z79.01 Long term (current) use of anticoagulants; Z79.4 Long term (current) use of insulin; Z87.891 Personal history of nicotine dependence; I25.2 Old myocardial infarction; I69.398 Other sequelae of cerebral infarction; R26.89 Other abnormalities of gait and mobility
CPT/HCPCS: 33340; 36415; 80053; 82962; 85025; 85347; 85610; 86850; 86900; 86901; 87070; 93005; 93355; C1892; C1894; Q9967

== ENCOUNTER → 2025-02-01 11:15 | Outpatient (REF) | payer MEDICARE, OTHER, SELFPAY | LOC: SDSPAT 11:15 | PROVIDERS: ATTENDING PHYSICIAN Internal Medicine Cardiovascular Disease; FAMILY PHYSICIAN Family Medicine; OTHER PHYSICIAN Internal Medicine Interventional Cardiology | DX: I48.0 Paroxysmal atrial fibrillation (principal) | CPT/HCPCS: 93005 ==

== ENCOUNTER 2025-02-16 06:58 | Day surgery (SDC) | payer MEDICARE, OTHER, SELFPAY ==
--- NOTE | 2025-02-01 12:19 | HPS.HSE ---
Family Physician
-
Family Physician: NO INTERVIEW UNKNOWN
Chief Complaint
-
Paroxysmal atrial fibrillation.
History of Present Illness
The patient is a 75 year old male presenting today for paroxysmal atrial fibrillation. The patient underwent a cardioversion and pulmonary vein isolation in 2018 secondary to this diagnosis. His most recent 3 month LINQ summary from
September to December of this year revealed 18 episodes of atrial fibrillation with an overall burden of 5%. He is currently on pharmacological therapy with Diltiazem and oral anticoagulation with Eliquis. His other past medical history is notable for
CVA, with residual balance difficulties and gait disturbance, and multilevel degenerative disc disease with stenosis. He reportedly has had falls in the past secondary to these diagnoses. He did undergo a Watchman implant as advised on November 15, [address] Brett Anthony. He reports no post-operative complications. He is now 3 months post-procedure and will next proceed with a transesophageal echocardiogram to assess the overall stability of his device. He denies complaints today such as
shortness of breath, palpitations, nausea, vomiting, diarrhea, lightheadedness, dizziness, cough, sore throat, or fever. He does report recent intermittent left-sided chest discomfort which often occurs when bending over. It lasts less than 5
minutes and resolves on its own. He denies radiation. Although atypical for angina, a stress test has been ordered per his routine straw hat plunger operator. His most recent echocardiogram on January 13, 2025 was stable.
Medical History
Past Medical History
Past Medical History: Reports Other
Additional Past Medical History:
1. Paroxysmal atrial fibrillation with atrial flutter, status post cardioversion, pulmonary vein isolation in 2018, and Watchman implant 11/2024; pharmacological therapy with Diltiazem and oral anticoagulation with Eliquis.
2. Hypertension.
3. Hyperlipidemia.
4. Coronary artery disease, nonobstructive by catheterization 2018.
5. Atypical chest pain, work-up ongoing.
6. Cardiomyopathy, improved ejection fraction.
7. Mild-moderate valvular disease.
8. Obstructive sleep apnea, CPAP compliant.
9. Type 2 insulin-dependent diabetes with neuropathy.
10. Hiatal hernia.
11. Cholelithiasis, asymptomatic.
12. CVA, right lacunar, with deficits of balance/gait disturbance and cognitive decline.
13. TIA x3.
14. DISH-thoracic.
15. Multilevel degenerative disc disease with stenosis.
16. Osteoarthritis, status post right total shoulder arthroplasty.
17. Anxiety.
18. Remote tobacco abuse.
Past Surgical History: Reports Other
Additional Past Surgical History:
1. Watchman implant.
2. LINQ implant.
3. Pulmonary vein isolation.
4. Cardioversion x1.
5. C5-C6 fusion.
6. Right total shoulder arthroplasty.
7. Nasal septoplasty.
8. Tonsillectomy.
9. Cataract extraction.
10. Colonoscopy.
Social History
Tobacco: Former Smoker (He is a former less than 1 pack per day cigarette smoker who quit tobacco altogether 10+ years ago. )
Alcohol: Occasional
Personal:
Living: Other (He lives in a 2 story home with his . )
Family History
Family History: Not pertinent
Allergies / Home Medications
Allergy/Medication List:
Home medications:
1. Diltiazem 360 mg p.o. daily.
2. Amlodipine 5 mg p.o. at bedtime.
3. Duloxetine 90 mg p.o. daily.
4. Eliquis 5 mg p.o. twice a day.
5. Fenofibrate 54 mg p.o. daily.
6. Humalog sliding scale before meals.
7. Insulin pump.
8. Losartan 75 mg p.o. daily.
9. Crestor 20 mg p.o. daily.
10. [place]-3/fish oil 3000 mg p.o. daily.
Allergies: Tetracyclines.
Review of Systems
-
A 12 point ROS was completed and negative except as noted: Yes
Physical Exam
Vital Signs
Blood pressure 153/73. Heart rate 59. Respirations 18. Pulse ox 99% on room air.
Physical Exam
General: Well Developed, Well Nourished and No Apparent Distress
HEENT: NormoCephalic, Moist mucous membranes, Atraumatic and PERRLA
Respiratory: Clear
Cardiac: Bradycardia
GI: Soft, Non Tender and Non Distended
Musculoskeletal: Other (Trace left lower extremity edema. )
Skin: Warm and Dry
Neuro: AO x 3 and Nonfocal/grossly intact
Laboratory Results
-
EKG 02/01/2025: Sinus bradycardia. Moderate voltage criteria for LVH, may be normal variant.
Echocardiogram 01/13/2025: Normal left ventricular size, borderline increased wall thickness, and normal systolic function. No regional wall motion abnormalities are seen. The ejection fraction is estimated at 65%. Grade 1 diastolic dysfunction.
Normal right ventricular size and function. Mild left atrial enlargement. Normal right atrium. Mild MAC. Structurally normal mitral valve without significant stenosis with mild to moderate regurgitation. Structurally normal aortic valve, mildly
thickened without significant stenosis with mild regurgitation. Structurally normal tricuspid valve without significant stenosis with mild regurgitation. Estimated pulmonary artery pressure is 29 mmHg. Structurally normal pulmonic valve without
significant stenosis w/ physiologic regurgitation. Normal pericardium without effusion. Normal aortic root. IVC was not well-seen.
Impression/Plan
-
IMPRESSION/PLAN:
1. Paroxysmal atrial fibrillation: The patient is 3 months post-Watchman and will now undergo a transesophageal echocardiogram with Dr. Darwin Neff on 02/16/2025. The benefits and risks of the procedure have been explained to the patient. The
patient understands these risks and wishes to proceed. Should his device be well seated and without significant leaks, he will likely be transitioned off Eliquis and onto a daily baby Aspirin indefinitely.
2. Recent left sided chest discomfort: The patient's complaints sound musculoskeletal; however, he was advised to proceed with his stress test as planned. This will likely be scheduled within the next 30 days.
[2025-02-16 07:29] VITALS: BMI 29.7
== END 2025-02-16 09:00 | disposition home or self-care (01) ==
LOC: CATH 06:58
PROVIDERS: ATTENDING PHYSICIAN Internal Medicine Cardiovascular Disease; FAMILY PHYSICIAN Family Medicine; OTHER PHYSICIAN Internal Medicine Cardiovascular Disease; OTHER PHYSICIAN Internal Medicine Interventional Cardiology
DX: I48.0 Paroxysmal atrial fibrillation (principal); E11.40 Type 2 diabetes mellitus with diabetic neuropathy, unspecified; E78.5 Hyperlipidemia, unspecified; F41.9 Anxiety disorder, unspecified; G47.33 Obstructive sleep apnea (adult) (pediatric); I10 Essential (primary) hypertension; I25.10 Atherosclerotic heart disease of native coronary artery without angina pectoris; I42.9 Cardiomyopathy, unspecified; M19.90 Unspecified osteoarthritis, unspecified site; Z79.01 Long term (current) use of anticoagulants; Z79.4 Long term (current) use of insulin; Z79.899 Other long term (current) drug therapy; Z87.891 Personal history of nicotine dependence; Z90.89 Acquired absence of other organs; Z96.611 Presence of right artificial shoulder joint; I48.92 Unspecified atrial flutter; K44.9 Diaphragmatic hernia without obstruction or gangrene; K80.20 Calculus of gallbladder without cholecystitis without obstruction; R07.89 Other chest pain; I69.898 Other sequelae of other cerebrovascular disease; R26.89 Other abnormalities of gait and mobility; E11.9 Type 2 diabetes mellitus without complications; Z96.41 Presence of insulin pump (external) (internal)
CPT/HCPCS: 93312; 93320; 93325

== ENCOUNTER → 2025-03-10 07:20 | Outpatient (REF) | payer MEDICARE, OTHER, SELFPAY | LOC: RCS 07:20 | PROVIDERS: ATTENDING PHYSICIAN Nurse Practitioner; FAMILY PHYSICIAN Family Medicine | DX: R07.9 Chest pain, unspecified (principal) | CPT/HCPCS: 78452; 93017; A9500 ==

== ENCOUNTER → 2025-04-03 11:33 | Outpatient (REF) | payer MEDICARE, OTHER, SELFPAY ==
[2025-04-03 13:01] LABS: Hematocrit 41.0 % (39.0-52.0); Hemoglobin 14.2 g/dL (13.0-18.0); Mean Corp Hgb Conc. 34.6 g/dL (33.0-37.0); Mean Corpuscular Volume 88.0 fL (80.0-94.0); Nucleated Red Blood Cells % 0 % (-); Platelet Count 263 10^3/uL (130-400); Red Cell Dist. Width 12.3 % (11.5-14.5)
[2025-04-03 13:36] LABS: ALT (SGPT) 24 U/L (0-50); AST (SGOT) 32 U/L (17-59); Albumin 4.7 g/dl (3.5-5.0); Alkaline Phosphatase 107 U/L (38-126); Blood Urea Nitrogen 30 mg/dl (9-20); Calcium 9.7 mg/dl (8.4-10.2); Carbon Dioxide 29 mmol/L (22-30); Chloride 105 mmol/L (98-107); Glucose 126 mg/dl (70-99); Potassium 4.6 mmol/L (3.5-5.1); Sodium 140 mmol/L (135-145); Total Protein 7.2 g/dl (6.3-8.2); eGFR > 60.00
== END ==
LOC: SDSPAT 11:33
PROVIDERS: ATTENDING PHYSICIAN Student in an Organized Health Care Education/Training Program; FAMILY PHYSICIAN Family Medicine; REFERRING PHYSICIAN Internal Medicine Interventional Cardiology
DX: R07.9 Chest pain, unspecified (principal)
CPT/HCPCS: 36415; 80053; 85025; 93005

== ENCOUNTER 2025-04-07 12:27 | Day surgery (SDC) | payer MEDICARE, OTHER, SELFPAY ==
[2025-04-03 12:34] VITALS: BMI 29.2
[2025-04-07] VITALS (8 sets, daily range): BP systolic 151–159; BP diastolic 63–85
[2025-04-07 13:05] LABS: Glucose - Point of Care 255 mg/dl (70-99)
--- NOTE | 2025-04-07 14:42 | ITS.CL.PN ---
Printer Helper - Procedure Note
Procedure
Procedure Note:
CARDIAC CATHETERIZATION REPORT
Date of Procedure: 04/07/2025
Referring: Dilma Salazar NP
Indication: NSTEMI, positive cardiac stress test
PROCEDURE(S)
1. left heart catheterization
2. coronary angiography
ACCESS: 6F right femoral artery (closure: Angioseal x1; note: RRA is chronically occluded and a wire would not pass)
CATHETERS
1. 6F JR4
2. 6F JL4
MODERATE SEDATION: 25 minutes of moderate sedation was utilized. An independent medical logistics specialist was present to assist with and help manage the patient's level of consciousness and physiologic status.
HEMODYNAMIC DATA
LV 146/13 (EDP 16 with a-wave to 25) mmHg
AO 156/65 (mean 98) mmHg
CORONARY ANGIOGRAPHY
Dominance: right
LM: large vessel with eccentric calcification in the distal vessel up to 40% (best seen in the cranial projections).
LAD: large vessel giving rise to a several small diagonal branches. There is mild diffuse disease
LCx: large vessel giving rise to a small OM1, moderate caliber OM2, large branching OM3, and two small LPL branches. There is mild haziness at the LCx ostium, likely representing calcific disease extending from the distal LM. There is a focal 80%
stenosis in the proximal aspect of the moderate caliber OM2. There are otherwise mild luminal irregularities only.
RCA: large vessel giving rise to a moderate caliber RPDA and two small RPL branches. There are mild luminal irregularities only.
RADIATION: dose 370 mGy; DAP 24 Gy*cm2; fluoroscopy time 3.4 min
CONCLUSIONS
1. Nonobstructive coronary artery disease in a right dominant system as described
2. Mildly elevated LV filling pressure and no aortic stenosis
RECOMMENDATIONS: aggressive secondary prevention of coronary artery disease
Copy to: Dr. Lior Peña MD and Dr. Dilma Salazar NP (bevel mill operator); Dr. Buddy Novak DO (PCP)
Signed: Chi Park MD, PhD
[2025-04-07] MEDS: NSS 1000 IV (16:11)
== END 2025-04-07 17:40 | disposition home or self-care (01) ==
LOC: CATH 12:27
PROVIDERS: ATTENDING PHYSICIAN Student in an Organized Health Care Education/Training Program; FAMILY PHYSICIAN Family Medicine; OTHER PHYSICIAN Internal Medicine Interventional Cardiology
DX: I21.4 Non-ST elevation (NSTEMI) myocardial infarction (principal); R07.89 Other chest pain; I25.84 Coronary atherosclerosis due to calcified coronary lesion; M48.14 Ankylosing hyperostosis [Forestier], thoracic region; E78.5 Hyperlipidemia, unspecified; I10 Essential (primary) hypertension; I48.91 Unspecified atrial fibrillation; Z87.891 Personal history of nicotine dependence; I25.10 Atherosclerotic heart disease of native coronary artery without angina pectoris; E11.9 Type 2 diabetes mellitus without complications; G47.33 Obstructive sleep apnea (adult) (pediatric); M19.90 Unspecified osteoarthritis, unspecified site; F41.9 Anxiety disorder, unspecified; Z79.4 Long term (current) use of insulin; Z79.899 Other long term (current) drug therapy; Z86.73 Personal history of transient ischemic attack (TIA), and cerebral infarction without residual deficits; Z88.1 Allergy status to other antibiotic agents
CPT/HCPCS: 99152; 99153; 82962; 93458; C1760; C1894; Q9967

== ENCOUNTER 2025-09-09 17:04 | Emergency (ER) | payer MEDICARE, OTHER, SELFPAY ==
[2025-09-09] VITALS (16 sets, daily range): BP systolic 121–149; BP diastolic 52–71
[2025-09-09 18:04] LABS: Hematocrit 39.0 % (39.0-52.0); Hemoglobin 13.5 g/dL (13.0-18.0); Mean Corp Hgb Conc. 34.6 g/dL (33.0-37.0); Mean Corpuscular Volume 88.8 fL (80.0-94.0); Nucleated Red Blood Cells % 0 % (-); Platelet Count 258 10^3/uL (130-400); Red Cell Dist. Width 12.3 % (11.5-14.5)
[2025-09-09 18:25] LABS: ALT (SGPT) 24 U/L (0-50); AST (SGOT) 36 U/L (17-59); Albumin 4.2 g/dl (3.5-5.0); Alkaline Phosphatase 94 U/L (38-126); Blood Urea Nitrogen 28 mg/dl (9-20); Calcium 9.4 mg/dl (8.4-10.2); Carbon Dioxide 27 mmol/L (22-30); Chloride 104 mmol/L (98-107); Glucose 116 mg/dl (70-99); Potassium 4.8 mmol/L (3.5-5.1); Sodium 138 mmol/L (135-145); Total Protein 6.4 g/dl (6.3-8.2); eGFR 36.79
[2025-09-09 18:28] LABS: Troponin I 0.017 ng/ml
--- NOTE | 2025-09-09 18:41 | ED.GENMED ---
History of Present Illness
<Piyush Gordon PA-C - Last Filed: 09/09/25 21:20>
General
Chief Complaint: Chest Pain
Time Seen by Provider: 09/09/25 17:29
History of Present Illness
History of Present Illness:
75-year-old male with history of paroxysmal A-fib status post watchman, CAD, lipidemia, hypertension, and insulin-dependent type 2 diabetes presents to the emergency department for evaluation of exertional chest discomfort and shortness of breath
ongoing for the past several days. Seems to be worse over the past 24 hours. Has no chest pain at rest. Denies heart palpitations. No recent febrile illnesses, coughing. No leg swelling. Most recent cardiac authorization was March of this year
showing mild nonobstructive CAD
Past History
<Piyush Gordon PA-C - Last Filed: 09/09/25 21:20>
Past History
ED Past Medical History: Arrthythmia (Atrial fib), CAD, CVA (Denies weakness), HTN, Hypercholesterolemia, NIDDM, Psychiatric (Anxiety) and Other (Diabetic neuropathy, Sleep apnea use Bipap, PNA, Colitis, Ulcers)
ED Past Surgical History: Cardiac (Linq recorderm Ablation), Orthopedic (Spinal surgery) and Tonsilectomy
Social History
Tobacco: Former smoker
Alcohol: Occasional
Drug: None
Personal:
Living: with family
Review of Systems
<Piyush Gordon PA-C - Last Filed: 09/09/25 21:20>
Review of Systems
Allergies reviewed?: Yes
All Other Systems: ROS reviewed and negative except as documented in HPI and ROS
Phy Exam
<Piyush Gordon PA-C - Last Filed: 09/09/25 21:20>
Physical Exam
Physical Exam:
GEN: Well appearing, NAD, WDWN
HEENT: Oral mucosa moist, no scleral icterus
Cardiac: Irregular, controlled rate, no murmur
Lung: No respiratory distress, no tachypnea, lungs clear
MSK: No gross deformity or injuries
Skin: Good color, no pallor or jaundice, no rashes
Neuro: AO x3, moves all extremities freely
Psych: Calm, cooperative
Scores
<Piyush Gordon PA-C - Last Filed: 09/09/25 21:20>
Heart Score for Chest Pain Patients
STEMI patient?: Not applicable
Course
<Piyush Gordon PA-C - Last Filed: 09/09/25 21:20>
Orders/Labs/Results
Orders:
Orders
09/09/25 17:04
EKG [Electrocardiogram (*1)] Urgent
Reason for Study: Chest Pain
09/09/25 17:05
EKG- Treatment ONCE
09/09/25 17:43
CR Chest - 2 Views Urgent
Comment:
Reason For Exam: HARRIS
09/09/25 17:52
Complete Blood Count/With Diff Urgent
Comprehensive Metabolic Panel Urgent
NT-proBNP Urgent
Troponin I Urgent
09/09/25 19:37
Propofol [Diprivan] 20 ml .ROUTE .STK-MED
09/09/25 19:41
Propofol [Diprivan] 75 mg IV NOW STA
09/09/25 19:53
Apixaban [Eliquis] 5 mg PO NOW STA
Abnormal Lab Results
09/09/25
17:52
WBC 11.5 H 10^3/uL
(4.8-10.8)
RBC 4.39 L 10^6/uL
(4.70-6.10)
MPV 10.7 H fL
(7.4-10.4)
Abs Immat Gran (auto) 0.1 H 10^3/uL
(0-0.05)
Absolute Neuts (auto) 8.3 H 10^3/uL
(1.4-6.5)
Absolute Monos (auto) 0.9 H 10^3/uL
(0.1-0.6)
Immature Gran % 0.7 H %
(0-0.5)
Lymphocytes % 18.0 L %
(20.5-51.1)
BUN 28 H mg/dl
(9-20)
Creatinine 1.9 H mg/dL
(0.7-1.3)
Glucose 116 H mg/dl
(70-99)
09/09/25 17:52
09/09/25 17:52
Vital Signs
Initial and Last Documented VS:
Initial Vital Signs
Temp Pulse Resp Pulse Ox
98.9 F 78 19 97
09/09/25 17:07 09/09/25 17:07 09/09/25 17:07 09/09/25 17:07
Last Documented Vital Signs
Temp Pulse Resp BP Pulse Ox
98 F 61 16 132/64 96
09/09/25 20:31 09/09/25 20:31 09/09/25 20:31 09/09/25 20:31 09/09/25 20:31
<Chino Wahl, DO - Last Filed: 09/09/25 19:47>
Orders/Labs/Results
Orders:
Orders
09/09/25 17:04
EKG [Electrocardiogram (*1)] Urgent
Reason for Study: Chest Pain
09/09/25 17:05
EKG- Treatment ONCE
09/09/25 17:43
CR Chest - 2 Views Urgent
Comment:
Reason For Exam: HARRIS
09/09/25 17:52
Complete Blood Count/With Diff Urgent
Comprehensive Metabolic Panel Urgent
NT-proBNP Urgent
Troponin I Urgent
09/09/25 19:37
Propofol [Diprivan] 20 ml .ROUTE .STK-MED
09/09/25 19:41
Propofol [Diprivan] 75 mg IV NOW STA
09/09/25 19:53
Apixaban [Eliquis] 5 mg PO NOW STA
Abnormal Lab Results
09/09/25
17:52
WBC 11.5 H 10^3/uL
(4.8-10.8)
RBC 4.39 L 10^6/uL
(4.70-6.10)
MPV 10.7 H fL
(7.4-10.4)
Abs Immat Gran (auto) 0.1 H 10^3/uL
(0-0.05)
Absolute Neuts (auto) 8.3 H 10^3/uL
(1.4-6.5)
Absolute Monos (auto) 0.9 H 10^3/uL
(0.1-0.6)
Immature Gran % 0.7 H %
(0-0.5)
Lymphocytes % 18.0 L %
(20.5-51.1)
BUN 28 H mg/dl
(9-20)
Creatinine 1.9 H mg/dL
(0.7-1.3)
Glucose 116 H mg/dl
(70-99)
09/09/25 17:52
09/09/25 17:52
Vital Signs
Initial and Last Documented VS:
Initial Vital Signs
Temp Pulse Resp Pulse Ox
98.9 F 78 19 97
09/09/25 17:07 09/09/25 17:07 09/09/25 17:07 09/09/25 17:07
Last Documented Vital Signs
Temp Pulse Resp BP Pulse Ox
98 F 61 16 132/64 96
09/09/25 20:31 09/09/25 20:31 09/09/25 20:31 09/09/25 20:31 09/09/25 20:31
Procedures
<Chino Wahl, - Last Filed: 09/09/25 19:47>
Moderate Sedation
ASA Risk Score: Class II
Chart and allergies reviewed: Yes
Consent for anesthesia obtained: Yes
Time out completed (validating right patient & procedure): Yes
Moderate Sedation Start Time(when first medication is given): 19:41
History of difficult intubation: No
Airway free of obstruction: Yes
Patient has a gag reflex: Yes
Patient is able to open mouth: Yes
Patient has no dentures: Yes
Patient has no loose teeth: Yes
Medication administered by Provider during Moderate Sedation: IV Propofol (mg)
Total dose administered: 75
Time drug administered: 19:41
Moderate Sedation Procedure End Time: 19:51
Cardioversion
Indication:: Afib
Performed by:: Piyush Gordon PA-C
Synchronized?: Yes
Energy Used: 200 joules
Number of attempts: 1
Successful?: Yes
Complications: None
ASA Risk Score: Class II
Any reaction or bad outcome to prior sedation/anesthesia?: No history of a reaction
Sedation level to be attained: moderate
Chart and allergies reviewed: Yes
Patient reassessed prior to sedation: Yes
Time out completed at (validating right patient & procedure): 19:40
History of difficult intubation: No
Airway free of obstruction: Yes
Patient has a gag reflex: Yes
Patient is able to open mouth: Yes
Patient has no dentures: Yes
Patient has no loose teeth: Yes
Medication administered by Provider during Moderate Sedation: IV Propofol (mg)
Total dose administered: 75
Time drug administered: 19:41
Start Time: 19:41
Stop Time: 19:51
<Piyush Gordon PA-C - Last Filed: 09/09/25 21:20>
MDM/Problems Addressed
MDM/Problems Addressed:
Tolerated cardioversion well with no complications. Troponin normal, suspected symptoms are all mediated by tachycardic episodes/A fib RVR. Per cardiology, recommending 30d of anticoagulation despite prior watchman procedure.
<Piyush Gordon PA-C - Last Filed: 09/09/25 21:20>
Comment
Comment:
EKG independently interpreted by me shows a rate controlled atrial relation at a rate of 60 without issues. Interrogation of the [employer]tronic device shows intermittent A-fib with tachycardia on September 04 as well as September 07, most recently from 6
essentially ongoing for the 24 or more hours
*Pulse Oximetry
SaO2: 99
Oxygen Mode of Delivery: Room air
Patient hypoxic: no
*Critical Care Note
Total Time (30-74mins, 75-104mins- exclusive of procedures): Not Applicable
<Piyush Gordon PA-C - Last Filed: 09/09/25 21:20>
Update Note
Update Note:
LINQ device report reviewed showing multiple episodes of tachyarrhythmia over the past 4 days with sustained tachycardic A-fib for the past 24+ hours
ED Attending Note
<Piyush Gordon PA-C - Last Filed: 09/09/25 21:20>
-
Portions of this chart may have been created with voice recognition software.� Occasional wrong word or��sound alike� substitutions may have occurred due to the inherent limitations of voice recognition software.
<Chino Wahl DO - Last Filed: 09/09/25 19:47>
ED Attending Note
Patient seen and examined by attending physician: Yes
I performed the substantive portion of visit, reviewed & personally made and approve the management plan that is documented in note by myself or NICOLE.: Yes
ED Attending Note:
I have seen and evaluated the patient with a cufd-wj-dcyl encounter. I have spoken to the advance practicer provider and involved in the medical history, the physical exam, medical decision making.
Evaluation and management service: agree unless noted differently below.
Results interpretation: agree unless noted differently below.
Focused HPI: 75-year-old male presenting for evaluation of palpitations that occurred several days ago. Patient has a history of paroxysmal A-fib. He is not on a blood thinner because he had the Watchman procedure several months back
Physical exam: Sitting in bed comfortably. Heart regular rate but irregular rhythm
Medical Decision Making: Discussed case with cardiology but the patient appears to be a stable candidate for cardioversion
Discharge Plan
Departure
Patient Disposition: Home (Routine Discharge)
Date of Disposition: 09/09/25
Time of Disposition: 20:21
Patient with high blood pressure during this ER visit?: No
Discharge Problem:
Atrial fibrillation, Exertional dyspnea
Instructions: Atrial fibrillation and atrial flutter - ED (DC), MODERATE SEDATION ADULT
Prescriptions:
New
Eliquis 5 mg tablet
5 mg PO BID Qty: 60 0RF
No Action
losartan 50 MG tablet
50 mg PO DAILY
rosuvastatin 20 MG tablet
20 mg PO DAILY
duloxetine 60 MG capsule,delayed release(DR/EC)
60 mg PO DAILY
fenofibrate 54 MG tablet
54 mg PO DAILY
omega 3-vlp-jii-fish oil [Fish Oil] 1,000 MG capsule
3,000 mg PO DAILY
diltiazem HCl 180 MG capsule,extended release 24hr
360 mg PO DAILY Qty: 60 11RF
amlodipine 5 mg Tablet
5 mg PO QPM
insulin lispro [Humalog U-100 Insulin] 100 unit/mL solution
1 sliding scale dose SC DIRECTED Qty: 10 0RF
ascorbic acid (vitamin C) [Vitamin C] 500 mg Tablet
500 mg PO DAILY
cholecalciferol (vitamin D3) [Vitamin D3] 50 mcg (2,000 unit) Capsule
50 mcg PO DAILY
aspirin 81 mg Tablet
81 mg PO DAILY
losartan 50 mg tablet
25 mg PO QPM
Metamucil Packet
1 packet PO MOWEFR
Referrals:
Xiomy Haas MD [Family Provider, Family Practice]
Activity Restrictions/Additional Instructions:
Follow up with your resort housekeeper within the next month
Interventions
Interventions:
*General Assessment Last Done: 09/09/25 17:10
*Neglect/Abuse Screening Last Done: 09/09/25 17:10
*ED COVID-19 Vaccine History Last Done: 09/09/25 17:10
*ED Influenza Vaccine History Last Done: 09/09/25 17:10
[facility] Risk Assessment Tool Last Done: 09/09/25 17:04
*Risk Screen - Suicide (C-SSRS) Last Done: 09/09/25 17:10
*Nursing Disposition Last Done: 09/09/25 20:31
ED- Cardiac Assessment Last Done: 09/09/25 17:49
Discharge Date and Time
Discharge Date/Time: 09/09/25 20:35
Print Language: [id number]
[2025-09-09] MEDS: DIPRIVAN 75 MG IV (19:41)
[2025-09-09] MEDS: ELIQUIS 5 MG PO (20:10)
== END 2025-09-09 20:35 | disposition home or self-care (01) ==
LOC: EMR 17:04
PROVIDERS: Physician Assistant; EMERGENCY PHYSICIAN Student in an Organized Health Care Education/Training Program; FAMILY PHYSICIAN Family Medicine
DX: I48.91 Unspecified atrial fibrillation (principal); I25.10 Atherosclerotic heart disease of native coronary artery without angina pectoris; Z86.73 Personal history of transient ischemic attack (TIA), and cerebral infarction without residual deficits
CPT/HCPCS: 92960; 99152; 99285; 71046; 80053; 83880; 84484; 85025; 93005